=== PATIENT | female | born 1980 | race American Indian/Alaskan Native ===

== ENCOUNTER 2016-05-16 10:23 | Emergency (ER) | payer BC ==
--- NOTE | 2016-05-16 10:58 | Emergency Department Report ---
Chief Complaint: Abdominal Pain Stated Complaint: CHEST PAIN/ABD PAIN Time Seen by Provider: 05/16/16 10:53 - HPI History of Present Illness: 36-year-old female with a past medical history of a gastric bypass in 2010 comes in today for complaint of nonspecific abdominal pain since last night. Patient reports that she is having pressure when she tries to have a bowel movement. She reports the pain is more like crampy she does have pain but crampiness went away with her pain medication of tramadol Flexeril. She is still having steady pain in the epigastric area. She reports that she would have more cramps and pressure when she tries to move her bowels. Patient with yesterday and had an endoscopy and it showed that she has severe GERD. Patient reports she been taking her Zantac and sounds like she's taken Mylanta for her epigastric pain. She is in the process of having a revision to her gastric bypass. She complains of nausea no vomiting but dry heaving she denies any diarrhea. - Exam Vital Signs: Vital Signs 05/16/16 10:37 Temperature 98.6 F Pulse Rate 87 Respiratory 18 Rate Blood Pressure 148/102 O2 Sat by Pulse 100 Oximetry Physical Exam: Since alert and oriented she's obvious discomfort area cardiovascular S1-S2 regular rate and rhythm respiratory clear to auscultation bilaterally abdomen is soft nontender bowel sounds throughout. Extremities is no edema noted. MSE screening note: Focused history and physical exam performed. Due to findings the following was ordered: Labs ordered for this patient's CBC CMP lipase amylase urinalysis urine . ED Disposition for MSE Condition: Stable Instructions: Abdominal Pain (ED)
[2016-05-16 11:39] LABS: Hematocrit 42.3 % (30.3-42.9); Hemoglobin 14.4 gm/dl (10.1-14.3); Mean Corpuscular HGB Conc 34 % (30-34); Mean Corpuscular Hemoglobin 29 pg (28-32); Mean Corpuscular Volume 86 fl (79-97); Platelet Count 225 K/mm3 (140-440); Red Blood Count 4.92 M/mm3 (3.65-5.03); Red Cell Distribution Width 13.1 % (13.2-15.2)
[2016-05-16 11:58] LABS: Alanine Aminotransferase 42 units/L (7-56); Albumin 3.8 g/dL (3.9-5); Alkaline Phosphatase 122 units/L (35-129); Amylase 57 units/L (27-131); Anion Gap 19 mmol/L; BUN/Creatinine Ratio 25.71; Bilirubin,Total 0.2 mg/dL (0.1-1.2); Blood Urea Nitrogen 18 mg/dL (7-17); Calcium 8.8 mg/dL (8.4-10.2); Carbon Dioxide 21 mmol/L (22-30); Chloride 101.2 mmol/L (98-107); Glucose 96 mg/dL (65-100); Lipase 27 units/L (13-60); Potassium 4.2 mmol/L (3.6-5.0); Sodium 137 mmol/L (137-145); Total Protein 7.5 g/dL (6.3-8.2)
[2016-05-16 12:31] LABS: Bacteria,Urine 1+ /HPF (Negative); Bilirubin,Urine NEG (Negative); Blood,Urine NEG (Negative); Ketones,Urine 20 mg/dL (Negative); Leukocyte Esterase,Urine SM (Negative); Mucus,Urine 3+ /HPF; Nitrite,Urine NEG (Negative); Protein,Urine <15 mg/dL mg/dL (Negative); Urobilinogen,Urine < 2.0 mg/dL (<2.0)
[2016-05-16] MEDS ORDERED: TYLENOL ONE (16:55)
[2016-05-16] MEDS ORDERED: TYLENOL PO ONE (16:58)
[2016-05-16] MEDS ORDERED: BENTYL IM ONE (20:17)
[2016-05-16] MEDS ORDERED: CARAFATE PO ONE (20:17)
[2016-05-16] MEDS ORDERED: ALUM-MAG HYDROX-SIMETH 200-200-20MG/5ML PO ONE (20:18)
[2016-05-16] MEDS ORDERED: LIDOCAINE VISCOUS 2% PO ONE (20:18)
--- NOTE | 2016-05-16 20:23 | Emergency Department Report ---
ED Abdominal Pain HPI - General Chief Complaint: Abdominal Pain Stated Complaint: CHEST PAIN/ABD PAIN Time Seen by Provider: 05/16/16 10:53 Source: patient Mode of arrival: Ambulatory Limitations: No Limitations - History of Present Illness Initial Comments: 36-year-old female presents to the emergency department complaining of abdominal pain. Symptoms began yesterday afternoon. Patient as well as a burning sensation in her upper abdomen that radiates into her chest. Patient is also complaining of generalized abdominal cramping. Patient states she took 2 Flexeril and a tramadol yesterday. This helped the cramping in her abdomen, but the pain persisted. She reports nausea, but no vomiting. Patient states she recently underwent an upper endoscopy. She was told she had severe acid reflux. She has been taking generic Zantac twice a day with little relief. There are no other complaints. MD Complaint: abdominal pain -: Gradual, days(s) (1) Location: epigastric Radiation: chest Migration to: no migration Severity scale (0 -10): 9 Quality: burning Consistency: constant Improves With: nothing Worsens With: nothing Associated Symptoms: nausea - Related Data Previous Rx's Medication Instructions Recorded Last Taken Type Famotidine [Pepcid] 20 mg PO BID #60 tablet 05/16/16 Unknown Rx Sucralfate [Carafate] 1 gm PO Q6HR #60 tablet 05/16/16 Unknown Rx Allergies Allergy/AdvReac Type Severity Reaction Status Date / Time No Known Allergies Allergy Unverified 05/16/16 10:37 ED Review of Systems ROS: Stated complaint: CHEST PAIN/ABD PAIN Other details as noted in HPI Comment: All other systems reviewed and negative Gastrointestinal: abdominal pain, nausea ED Past Medical Hx - Past Medical History Previous Medical History?: Yes Hx GERD: Yes Hx Arthritis: Yes (OSTEOARTHRITIS) Hx Psychiatric Treatment: Yes (ANXIETY) Additional medical history: FIBROMYALGIA - Surgical History Past Surgical History?: Yes Hx Cholecystectomy: Yes Additional Surgical History: GASTRIC BYPASS 2010 - Family History Family history: no significant - Social History Smoking Status: Never Smoker Substance Use Type: Alcohol, Prescribed - Medications Home Medications: Home Medications Medication Instructions Recorded Confirmed Last Taken Type Famotidine [Pepcid] 20 mg PO BID #60 tablet 05/16/16 Unknown Rx Sucralfate [Carafate] 1 gm PO Q6HR #60 tablet 05/16/16 Unknown Rx ED Physical Exam - General Limitations: No Limitations General appearance: alert, in no apparent distress - Head Head exam: Present: atraumatic, normocephalic - Eye Eye exam: Present: normal appearance, PERRL, EOMI - ENT ENT exam: Present: normal exam, normal orophraynx, mucous membranes moist - Neck Neck exam: Present: normal inspection, full ROM. Absent: tenderness - Respiratory Respiratory exam: Present: normal lung sounds bilaterally. Absent: respiratory distress - Cardiovascular Cardiovascular Exam: Present: regular rate, normal rhythm, normal heart sounds - GI/Abdominal GI/Abdominal exam: Present: soft, tenderness (mild epigastric tenderness to palpation), normal bowel sounds. Absent: distended, guarding, rebound - Extremities Exam Extremities exam: Present: normal inspection, full ROM. Absent: tenderness - Back Exam Back exam: Present: normal inspection, full ROM. Absent: tenderness - Neurological Exam Neurological exam: Present: alert, oriented X3. Absent: motor sensory deficit - Skin Skin exam: Present: warm, dry, intact ED Course Vital Signs 05/16/16 05/16/16 10:37 19:59 Temperature 98.6 F Pulse Rate 87 Respiratory 18 16 Rate Blood Pressure 148/102 O2 Sat by Pulse 100 98 Oximetry ED Medical Decision Making - Lab Data Result diagrams: 05/16/16 11:09 05/16/16 11:09 - EKG Data -: EKG Interpreted by Me EKG shows normal: sinus rhythm, axis, intervals, QRS complexes, ST-T waves Rate: normal - EKG Data When compared to previous EKG there are: previous EKG unavailable Interpretation: normal EKG - Radiology Data Radiology results: image reviewed interpreted by me: Chest x-ray shows no acute cardiopulmonary abnormality. There is no evidence of free air under the diaphragm. - Medical Decision Making Lab and imaging results reviewed and discussed with the patient. Patient reports symptoms are improved with medication. Patient will be discharged home at this time. - Differential Diagnosis GERD, PUD, perforated viscus Critical care attestation.: If time is entered above; I have spent that time in minutes in the direct care of this critically ill patient, excluding procedure time. ED Disposition Clinical Impression: GERD (gastroesophageal reflux disease) Qualifiers: Esophagitis presence: without esophagitis Qualified Code(s): K21.9 - Gastro- esophageal reflux disease without esophagitis Disposition: DISCHARGED TO HOME OR SELFCARE Is pt being admited?: No Condition: Stable Instructions: Abdominal Pain (ED), Gastroesophageal Reflux Disease (ED) Prescriptions: Sucralfate [Carafate] 1 gm PO Q6HR #60 tablet Famotidine [Pepcid] 20 mg PO BID #60 tablet Referrals: MK LEVY MD [Primary Care Provider] - 3-5 Days Time of Disposition: 22:12
[2016-05-16] MEDS ORDERED: FLEXERIL PO ONE (21:50)
[2016-05-16 22:19] VITALS: BP 136/65
--- NOTE | 2016-05-17 09:59 | XRay Report ---
AP CHEST: HISTORY: chest pain AP view of the chest demonstrates a normal mediastinal and cardiac contour with clear lungs and normal bony and soft tissue structures. IMPRESSION: Unremarkable AP chest.
== END 2016-05-16 22:18 | disposition home or self-care (01) ==
LOC: ED 10:23
DX: K21.9 Gastro-esophageal reflux disease without esophagitis (principal); M19.90 Unspecified osteoarthritis, unspecified site; F41.9 Anxiety disorder, unspecified; M79.7 Fibromyalgia
CPT/HCPCS: 36415; 71010; 80053; 81001; 81025; 82150; 83690; 85027; 93005; 93010; 96372; 99284; J0500